=== PATIENT | male | born 1975 | race Caucasian/White ===

== ENCOUNTER 2016-10-27 15:02 | Emergency (ER) | payer OTHER ==
--- NOTE | 2016-10-27 16:36 | ED ORDER SUMMARY ---
..... Patient: DIANE OSORIO OrderSheet [facility] VisitID: [id number] [address] [place] [address] 40y, M Registration Date/Time: 10/27/2016 ORDER SHEET Weight: 88.4 kg (stated) Allergies: NKA GENERAL ORDERS: MEDICATION ORDERS: Tdap IM 0.5 mL (NOW, per protocol) (15:50 10/27/2016 Lidia Braswell) ([facility] 15:57 GMarshall R.N.) (16:03 GMarshall R.N.) IV FLUIDS: ORDER SHEET NOTES: [Electronically signed by Toma Gutierrez P.A.-C (17:24 10/27/2016)] [Electronically signed by Zully Gonzalez R.N. (09:03 11/13/2016)] [Electronically locked/signed by Zully Gonzalez R.N. (09:03 11/13/2016)]
--- NOTE | 2016-10-27 16:36 | ED NURSING NOTES ---
Clinical Report - Nurses [facility] [address] [place] [address] 10/27/2016 15:04 Patient: DIANE OSORIO TRIAGE Triage time 15:43. Chief Complaint: FALL while walking, landed face down; slipped (came around the deck corner to fast and slipped and fell and landed on iron table corner. Hitting left eyebrow.). SANTOS COMA SCORE: Santos Coma Scale: 15- eyes open spontaneously (4); best verbal response- oriented x 4 (5); best motor response- obeys commands (6). --15:52 Erendira Gupta R.N. 15:43 10/27/16. BP: 161/105. HR: 65. RR: 18. O2 saturation: 98%. Temp: 98 F. Pain level now: 11/23. Additional comments: Pt on RA. Pt states that BP is normal for him. . --15:52 Erendira Gupta R.N. Weight: 88.4 kg stated. Height/Length: 69 inches Per Patient. BMI: 28.8. --15:49 Erendira Gupta R.N. Medications Venlafaxine HCl ER Oral. --15:45 Erendira Gupta R.N. Metoprolol Tartrate Oral. --15:45 Erendira Gupta R.N. Allergies NKA. --15:45 Erendira Gupta R.N. History Arrived by private vehicle. Historian: patient. This occurred just prior to arrival. ( Pt denies dizziness, neck pain, or memory issues.). Trauma activation: Pre-hospital notification of patient arrival was not received. PAST MEDICAL HX: Tetanus status: unknown. Date of last tetanus shot cannot be recalled. SOCIAL HX: Current every day light tobacco smoker. Occasional alcohol use; consumes wine by the glass. History of occasional drug use: marijuana. FALL RISK ASSESSMENT: Fall risk assessment completed. No fall risk identified. NUTRITIONAL RISK ASSESSMENT: The nutritional risk assessment revealed no deficiencies. FUNCTIONAL ASSESSMENT: Functional assessment: no impairments noted. LEARNING NEEDS ASSESSMENT: The learning needs assessment revealed no barriers. SKIN INTEGRITY ASSESSMENT: Skin integrity risk assessment completed. No skin integrity risk identified. --15:52 Erendira Gupta R.N. PROBLEMS: Hypertension. --15:46 Erendira Gupta R.N. NURSING PROGRESS NOTES 16:03 10/27/2016 TDAP IM 0.5 mL given. (Lot#: [id number], expiration date: 06/23/2018). --16:03 Sheldon Mandel R.N. Applied dressing consisting of 4x4 gauze, following the application of antibiotic ointment (bacitracin). Secured with tape. --16:41 Eric Dalal. DISPOSITION / DISCHARGE 16:57 10/27/16. Departure time: 1655. Condition at departure: improved and stable. No learning barriers present. Discharge instructions provided and reviewed with the patient and spouse. Reviewed medication(s) dosing information. Prescription(s) given to the patient. Patient and last sawyer verbalized understanding. Written instructions provided in Swedish. The patient was discharged by the physician assistant printer floor covering. He was discharged home and accompanied by spouse. He left the Emergency Department ambulatory and via private vehicle. Spouse driving. --16:57 Sammie Ellis R.N. 16:56 10/27/16. BP: 155/99. HR: 60. RR: 16. O2 saturation: 98% on room air. Temp: 97.6 F (oral). Pain level now 0/10. --16:57 Sammie Ellis R.N. Locked/Released at 11/13/2016 9:03 by Zully Gonzalez R.N.
--- NOTE | 2016-10-27 16:36 | ED NURSING NOTES ---
Clinical Report - Nurses [facility] [address] [place] [address] 10/27/2016 15:04 Patient: DIANE OSORIO TRIAGE Triage time 15:43. Chief Complaint: FALL while walking, landed face down; slipped (came around the deck corner to fast and slipped and fell and landed on iron table corner. Hitting left eyebrow.). SANTOS COMA SCORE: Santos Coma Scale: 15- eyes open spontaneously (4); best verbal response- oriented x 4 (5); best motor response- obeys commands (6). --15:52 Erendira Gupta R.N. 15:43 10/27/16. BP: 161/105. HR: 65. RR: 18. O2 saturation: 98%. Temp: 98 F. Pain level now: 11/23. Additional comments: Pt on RA. Pt states that BP is normal for him. . --15:52 Erendira Gupta R.N. Weight: 88.4 kg stated. Height/Length: 69 inches Per Patient. BMI: 28.8. --15:49 Erendira Gupta R.N. Medications Venlafaxine HCl ER Oral. --15:45 Erendira Gupta R.N. Metoprolol Tartrate Oral. --15:45 Erendira Gupta R.N. Allergies NKA. --15:45 Erendira Gupta R.N. History Arrived by private vehicle. Historian: patient. This occurred just prior to arrival. ( Pt denies dizziness, neck pain, or memory issues.). Trauma activation: Pre-hospital notification of patient arrival was not received. PAST MEDICAL HX: Tetanus status: unknown. Date of last tetanus shot cannot be recalled. SOCIAL HX: Current every day light tobacco smoker. Occasional alcohol use; consumes wine by the glass. History of occasional drug use: marijuana. FALL RISK ASSESSMENT: Fall risk assessment completed. No fall risk identified. NUTRITIONAL RISK ASSESSMENT: The nutritional risk assessment revealed no deficiencies. FUNCTIONAL ASSESSMENT: Functional assessment: no impairments noted. LEARNING NEEDS ASSESSMENT: The learning needs assessment revealed no barriers. SKIN INTEGRITY ASSESSMENT: Skin integrity risk assessment completed. No skin integrity risk identified. --15:52 Erendira Gupta R.N. PROBLEMS: Hypertension. --15:46 Erendira Gupta R.N. NURSING PROGRESS NOTES 16:03 10/27/2016 TDAP IM 0.5 mL given. (Lot#: [id number], expiration date: 06/23/2018). --16:03 Sheldon Mandel R.N. Applied dressing consisting of 4x4 gauze, following the application of antibiotic ointment (bacitracin). Secured with tape. --16:41 Eric Dalal. DISPOSITION / DISCHARGE 16:57 10/27/16. Departure time: 1655. Condition at departure: improved and stable. No learning barriers present. Discharge instructions provided and reviewed with the patient and spouse. Reviewed medication(s) dosing information. Prescription(s) given to the patient. Patient and parts clerk plant maintenance verbalized understanding. Written instructions provided in Kiswahili. The patient was discharged by the physician purchasing administrative assistant. He was discharged home and accompanied by spouse. He left the Emergency Department ambulatory and via private vehicle. Spouse driving. --16:57 Sammie Ellis R.N. 16:56 10/27/16. BP: 155/99. HR: 60. RR: 16. O2 saturation: 98% on room air. Temp: 97.6 F (oral). Pain level now 0/10. --16:57 Sammie Ellis R.N. Locked/Released at 11/13/2016 9:03 by Zully Gonzalez R.N.
--- NOTE | 2016-10-27 16:36 | ED CLINICAL REPORT ---
Clinical Report - Physicians/Mid Levels [facility] [address] [place] [address] 10/27/2016 15:04 Patient: DIANE OSORIO Time Seen: 15:50 Oct 27 2016. Arrived- By private vehicle. Historian- patient and spouse. HISTORY OF PRESENT ILLNESS Location of injuries- head and face. Chief Complaint: INJURY TO HEAD. The injury occurred just prior to arrival. Occurred at home. The patient sustained a blow and laceration. The patient complains of mild pain. The patient sustained a blow to the head. No neck pain or loss of consciousness. Not dazed. (Fell on deck, struck head on furniture, sustaining laceration. Some headache at the time, none now. NO loc. No neck pain. No prior injury to area. Witnessed by ). REVIEW OF SYSTEMS The patient sustained skin laceration. All systems otherwise negative, except as recorded above. PAST HISTORY Last tetanus immunization unknown. SOCIAL HISTORY Smoker- current status unknown. Alcohol use. History of drug use. ADDITIONAL NOTES The nursing notes have been reviewed. PHYSICAL EXAM Vital Signs: 10/27/2016 16:56 BP: 155/99. HR: 60. RR: 16. O2 saturation: 98%. Temp: 97.6 F. Appearance: Alert. No acute distress. No backboard or C-collar. Head: Head non-tender. Eyes: Pupils equal, round and reactive to light. EOM intact. Right eye: No conjunctival laceration or foreign body of the right eye. No corneal laceration or perforation of the right eye. Right periorbital area: 3.0 cm horizontal laceration of the supraorbital area of the periorbital area (superior to eyebrow lac 3 cm, full thickness, no bleeding.). SEE LACERATION PROCEDURE NOTE #1. No foreign body. No tenderness, swelling, ecchymosis or deformity. No entrapment of extraocular muscles. ENT: No dental injury. No hemotympanum. Neck: Neck non-tender. No vertebral tenderness. Posterior neck: No tenderness. CVS: Heart sounds normal. Rhythm normal. No JVD. Respiratory: Breath sounds normal. Chest nontender. No chest wall injury. Back: No tenderness. No tenderness or vertebral point tenderness. Skin: Skin intact. Skin warm. Neuro: Santos Coma Scale: 15- eyes open spontaneously (4); best verbal response- oriented x 3 (5); best motor response- obeys commands (6). Oriented X 3. Mood/affect normal. Speech normal. PROGRESS AND PROCEDURES Laceration Repair: Time: 17:22 Oct 27 2016. Location: forehead. Time-out completed immediately before the procedure. Complexity: simple (local anesthesia used and sutured). Wound depth/shape- linear and involving fascia. No sensory deficit or motor deficit distally. Local anesthesia provided using 1% lidocaine with epi. Closure of deep layer: interrupted 4-0 (2 absorb). Subcutaneous closure: interrupted 6-0 (13 sutures, non absorb). Post-procedure: he is stable and there are no complications. Bleeding is controlled and neuro-vascular status is intact distal to the wound. Dressing applied. Tetanus immunization up-to-date. Course of Care: Pt with neg neuro exam, no eom difficulty, no ocular pain, or changes in vision. Stable osseous structures. NO cervical spine tenderness. Tolerated lac repair well. Stable. To f/u outpatient. 10/27/2016 16:56 BP: 155/99. HR: 60. RR: 16. O2 saturation: 98%. Temp: 97.6 F. Patient is stable. Symptoms better. Patient/family counseled. Differential Diagnosis: I considered subarachnoid hemorrhage and intracranial bleed as a possible cause of headache in this patient. This is a partial list of diagnoses considered. Disposition: Discharged. Condition: good. CLINICAL IMPRESSION Single superficial laceration to the forehead.Treatment of laceration not delayed. No infection or foreign body present. Hypertension. INSTRUCTIONS Protect wound and keep wound area clean. Keep wounds dry. You may wash wounds briefly, then dry. Apply bacitracin twice daily. Sutures should be removed in seven days. OTC Medications: Take OTC medications according to label instructions. Available over the counter. Acetaminophen (available over the counter): take according to label instructions. Motrin (available over the counter): take according to label instructions. Follow-up: Follow up with your doctor in seven days. (Electronically signed by Toma Gutierrez P.A.-C 10/27/2016 17:24)
--- NOTE | 2016-10-27 16:36 | ED ORDER SUMMARY ---
..... Patient: DIANE OSORIO OrderSheet [facility] VisitID: [id number] [address] [place] [address] 40y, M Registration Date/Time: 10/27/2016 ORDER SHEET Weight: 88.4 kg (stated) Allergies: NKA GENERAL ORDERS: MEDICATION ORDERS: Tdap IM 0.5 mL (NOW, per protocol) (15:50 10/27/2016 Lidia Braswell) ([facility] 15:57 GMarshall R.N.) (16:03 GMarshall R.N.) IV FLUIDS: ORDER SHEET NOTES: [Electronically signed by Toma Gutierrez P.A.-C (17:24 10/27/2016)] [Electronically signed by Zully Gonzalez R.N. (09:03 11/13/2016)] [Electronically locked/signed by Zully Gonzalez R.N. (09:03 11/13/2016)]
--- NOTE | 2016-11-13 09:03 | ED DISCHARGE INSTRUCTIONS ---
Patient: DIANE OSORIO General Instructions [facility] VisitID: [id number] [place] [address] 40y, M Registration Date/Time: 10/27/2016 Single superficial laceration to the forehead.Treatment of laceration not delayed. No infection or foreign body present. Hypertension. INSTRUCTIONS Protect wound and keep wound area clean. Keep wounds dry. You may wash wounds briefly, then dry. Apply bacitracin twice daily. Sutures should be removed in seven days. OTC Medications: Take OTC medications according to label instructions. Available over the counter. Acetaminophen (available over the counter): take according to label instructions. Motrin (available over the counter): take according to label instructions. Follow-up: Follow up with your doctor in seven days. ADDITIONAL INFORMATION Laceration, Face (Suture Or Tape) Alaceration is a cut through the skin. This will require stitches if it is deep. Minor cuts may be treated with surgical tape. Home care The following guidelines will help you care for your laceration at home: If a bandage was applied and it becomes wet or dirty, replace it. Otherwise, leave it in place for the first 24 hours, then change it once a day or as directed. If sutures were used, clean the wound daily: After removing the bandage, wash the area with soap and water. Use a wet cotton swab to loosen and remove any blood or crust that forms. After cleaning, keep the wound clean and dry. Talk with your doctor before applying any antibiotic ointment to the wound. Reapply a fresh bandage. You may remove the bandage to shower as usual after the first 24 hours, but do not soak the area in water (no swimming) until the sutures are removed. If surgical tape was used, keep the area clean and dry. If it becomes wet, blot it dry with a towel. The doctor may prescribe an antibiotic cream or ointment to prevent infection. Do not stop taking this medication until you have have finished the prescribed course or the doctor tells you to stop. The doctor may also prescribe medications for pain. Follow the doctor's instructions for taking these medications.If you have chronic liver or kidney disease or ever had a stomach ulcer or GI bleeding, talk with your doctor before using these medicines. Follow-up care Follow up with your health care provider. Most facial cuts heal in five days with no problem. However, even with proper treatment, a wound infection sometimes occurs. Therefore, check the wound daily for the warning signs listed below. Stitches should not be left in the face for more thanfivedays; otherwise, permanent stitch thibodeaux may form. If surgical tape closures were used, you may remove them yourself afterfivedays, if they have not fallen off by then. When to seek medical care Get prompt medical attention if any of these occur: Increasing pain in the wound Redness, swelling, or pus coming from the wound If sutures come apart or fall out before 5 days If the surgical tape closures fall off before 5 days, or the wound edges reopen Fever of 100.4F (38C) or higher, or as directed by your health care provider Bleeding not controlled by direct pressure Laceration: Will There Be A Scar? A laceration is a cut through one or more layers of the skin. The goal of emergency treatment is to clean the wound and close it to prevent infection, control bleeding and speed healing. Cuts heal because the body is able to repair the skin by "sealing" the edges together with collagen, a kind of "skin cement." How deep your cut is, its location on your body, your age and the way your skin heals all determine how visible the final scar will be. Some persons tend to heal with more scar tissue than others. This cut will probably heal similar to other cuts you have had in the past. What You Can Do: There are a few simple things that you can do to limit the amount of scar that forms: 1) PREVENT INFECTION: An infected wound makes a bigger scar. Keep the wound clean and dry. Change the dressing and apply any ointment/cream as directed. 2) MASSAGE THE WOUND:After the stitches have been removed: Use a moisturizing cream or lotion containing Aloe or Vitamin E Oil and gently massage the skin around the wound with your fingertips (wash your hands first!). Do this twice a day for the first two weeks, then once a day for a month. This will increase the flow of oxygen and blood to the wound and prevent excess scar tissue from building up. 3) AVOID SUN EXPOSURE: During the first six months, avoid sun exposure since the scar may yousif a much darker color than the skin around it. When in the sun, use SPF #50 (or greater) sun block on the scar, or cover the area with a hat or clothing. What To Expect: -- The cut will be sealed within 2 days and will be strong within 5-10 days. However, it will take at least SIX MONTHS for it to be fully healed. -- During the FIRST THREE MONTHS, you may notice the scar line getting more red or purple in color. The scar may become raised. The skin around the wound may feel thick and lumpy. -- During the FOURTH TO SIXTH MONTHS, this process begins to reverse. The red and purple color will fade, the scar line flattens, and the skin around it feels more normal. -- In most cases, the way the scar line looks after six months is the way it will remain, although there may be some continued improvement up to one year after the injury. Is There Anything Else That Can Be Done? If you do not like the way the scar looks after six months, a plastic surgeon may be able to perform a "scar revision." If you have any questions or problems as your wound heals, contact your doctor or this facility. We will be glad to assist you. High Blood Pressure -- To Be Confirmed [No Tx] Your blood pressure was higher today than normal. Sometimes anxiety or pain can cause a temporary rise in blood pressure that later returns to normal. If your blood pressure is high on one measurement, this does not mean that you have hypertension (a chronic illness). However, you must have your blood pressure measured again within the next few days to find out if its still high. A normal blood pressure is 120/80 or less. The first (top) number is the "systolic" pressure. The second (bottom) number is the "diastolic" pressure. Hypertension exists when either the top number is 140 or higher, OR the bottom number is 90 or higher on repeated measurements. Blood pressure in the range of 120-140 (systolic) or 80-89 (diastolic) is considered "pre-hypertension". This means your are at risk for getting hypertension. You should have regular blood pressure checks to be sure your blood pressure is not rising. Home Care: Measure your blood pressure on 3 different days and write down the results. This can be done at your doctor's office or this facility. Some pharmacies and grocery stores offer automated blood pressure machines for your use. Follow Up: If your blood pressure is "high" (over 120/80) on 2 out of 3 days, you will need to follow up with your doctor for further evaluation and treatment. DO NOT PUT THIS OFF! Untreated high blood pressure increases the risk for heart attack, also known as acute myocardial infarction, or AMI, and stroke. It is a treatable condition. Get Prompt Medical Attention if any of the following occur: Chest pain or shortness of breath Severe headache Throbbing or rushing sound in the ears Nosebleed Sudden severe abdominal pain Extreme drowsiness, confusion or fainting Dizziness or vertigo (dizziness with spinning sensation) Weakness of an arm or leg or one side of the face Difficulty with speech or vision You have been given the following additional information: Laceration, Face (Suture Or Tape) Laceration, How To Minimize Scar Hypertension, To Be Confirmed (Electronically signed by Toma Gutierrez P.A.-C 10/27/2016 17:24)
--- NOTE | 2016-11-13 09:03 | ED MAR SUMMARY ---
..... Medication Administration Record [facility] [address] [place] [address] Patient: DIANE OSORIO Visit ID: [id number] 40y, M Weight: 88.4 kg Height/Length: 69 in BMI: 28.8 ALLERGIES: NKA Given 16:03 10/27/2016 Sheldon Mandel R.N. Medication Administered: TDAP [IM], Dose: 0.5 mL IM. Medication Ordered: Tdap IM 0.5 mL (NOW, per protocol).
--- NOTE | 2016-11-13 09:03 | ED MED RECONCILIATION SUMMARY ---
Patient: DIANE OSORIO Medication Reconciliation Report [facility] VisitID: [id number] [address] [place] [address] 40y, M Registration Date/Time: 10/27/2016 Weight: 88.4 kg Height/Length: 69 in. BMI: 28.8 ALLERGIES: NKA The patient's Home Medications are listed below: THE FOLLOWING MEDICATIONS NEED TO BE RECONCILED: Metoprolol Tartrate Oral Venlafaxine HCl ER Oral The source(s) of the original Home Medication information: Not obtained. The following Medications were given to the patient in the Emergency Department: TDAP [IM] IM 0.5 mL, administered: 10/27/2016 4:03:00 PM The following Medications were prescribed to the patient: Take OTC medications according to label instructions. Available over the counter. -- Toma Gutierrez, P.A.-C Acetaminophen (available over the counter): take according to label instructions. -- Toma Gutierrez, P.A.-C Motrin (available over the counter): take according to label instructions. -- Toma Gutierrez, P.A.-C
--- NOTE | 2016-11-13 09:03 | ED MED RECONCILIATION SUMMARY ---
Patient: DIANE OSORIO Medication Reconciliation Report [facility] VisitID: [id number] [address] [place] [address] 40y, M Registration Date/Time: 10/27/2016 Weight: 88.4 kg Height/Length: 69 in. BMI: 28.8 ALLERGIES: NKA The patient's Home Medications are listed below: THE FOLLOWING MEDICATIONS NEED TO BE RECONCILED: Metoprolol Tartrate Oral Venlafaxine HCl ER Oral The source(s) of the original Home Medication information: Not obtained. The following Medications were given to the patient in the Emergency Department: TDAP [IM] IM 0.5 mL, administered: 10/27/2016 4:03:00 PM The following Medications were prescribed to the patient: Take OTC medications according to label instructions. Available over the counter. -- Toma Gutierrez, P.A.-C Acetaminophen (available over the counter): take according to label instructions. -- Toma Gutierrez, P.A.-C Motrin (available over the counter): take according to label instructions. -- Toma Gutierrez, P.A.-C
--- NOTE | 2016-11-13 09:03 | ED MAR SUMMARY ---
..... Medication Administration Record [facility] [address] [place] [address] Patient: DIANE OSORIO Visit ID: [id number] 40y, M Weight: 88.4 kg Height/Length: 69 in BMI: 28.8 ALLERGIES: NKA Given 16:03 10/27/2016 Sheldon Mandel R.N. Medication Administered: TDAP [IM], Dose: 0.5 mL IM. Medication Ordered: Tdap IM 0.5 mL (NOW, per protocol).
== END 2016-10-27 16:55 | disposition home or self-care (01) ==
LOC: ED SRH 15:02
DX: S01.81XA Laceration without foreign body of other part of head, initial encounter (principal); W01.190A Fall on same level from slipping, tripping and stumbling with subsequent striking against furniture, initial encounter; Y93.89 Activity, other specified; Y99.8 Other external cause status; Y92.008 Other place in unspecified non-institutional (private) residence as the place of occurrence of the external cause; I10 Essential (primary) hypertension; Z23 Encounter for immunization